=== PATIENT | male | born 1960 | race American Indian/Alaskan Native ===

== ENCOUNTER 2017-04-30 06:05 | Day surgery (SDC) | payer OTHER ==
[~2017-04-30 06:05] MED LIST: ANCEF/STERILE WATER 2 GM/20 ML 2 GM/20 ML SYRINGE IV SCH; DECADRON IV ONE; NACL 0.9% 1000 ML 1,000 ML IV SCH; PEPCID PO NR; VERSED IV NR
[2017-04-30] MEDS ORDERED: NACL BACTERIOSTATIC INFILTRATI ONE (06:28)
[2017-04-30] MEDS ORDERED: SUBLIMAZE ONE (07:00)
[2017-04-30] MEDS ORDERED: DIPRIVAN 10 MG/ML IV ONE (07:00)
[2017-04-30] MEDS ORDERED: ZOFRAN ONE (07:00)
--- NOTE | 2017-04-30 07:02 | Anesthesia Consultation ---
Anesthesia Consult and Med Hx Date of service: 04/30/17 - Airway Anesthetic Teeth Evaluation: Chipped (#8) ROM Head & Neck: Adequate Mental/Hyoid Distance: Adequate Mallampati Class: Class III Intubation Access Assessment: Probably Good - Pulmonary Exam CTA: Yes - Cardiac Exam Cardiac Exam: RRR - Pre-Operative Health Status ASA Pre-Surgery Classification: ASA2 Proposed Anesthetic Plan: General (LMA) - Pre-Anesthesia Comment Pre-Anesthesia Comments: 57y M with h/o HTN (no longer on meds) who presents for bunionectomy. No prev anesthetic complications. - Pulmonary Hx Smoking: No Hx Asthma: No Hx Respiratory Symptoms: No SOB: No COPD: No Home Oxygen Therapy: No Hx Pneumonia: No Hx Sleep Apnea: No (LINDSAY PRE SCREEN HIGH RISK.) - Cardiovascular System Hx Hypertension: Yes (OFF MEDS X 1 YR) Hx Coronary Artery Disease: No (walks the golf course) Hx Heart Attack/AMI: No Hx Angina: No Hx Percutaneous Transluminal Coronary Angioplasty (PTCA): No Hx Cardia Arrhythmia: No Hx Pacemaker: No Hx Internal Defibrillator: No Hx Valvular Heart Disease: No Hx Heart Murmur: No Hx Peripheral Vascular Disease: No - Central Nervous System Hx Neuromuscular Disorder: No Hx Seizures: No CVA: No Hx Back Pain: No Hx Psychiatric Problems: No - Gastrointestinal Hx Ulcer: No Hx Gastroesophageal Reflux Disease: No - Endocrine Hx Renal Disease: No Hx End Stage Renal Disease: No Hx Cirrhosis: No Hx Liver Disease: No Hx Insulin Dependent Diabetes: No Hx Non-Insulin Dependent Diabetes: No Hx Thyroid Disease: No Hx Hypothyroidism: No Hx Hyperthyroidism: No - Other Systems Hx Cancer: No
[2017-04-30] MEDS ORDERED: XYLOCAINE MPF 2% ONE (07:04)
--- NOTE | 2017-04-30 07:09 | Anesthesia Day of Surgery ---
Anesthesia Day of Surgery - Day of Surgery Patient Examined: Yes Patient H&P Reviewed: Yes Patient is NPO: Yes Beta Blockers: Yes Cardiac Clearance: Yes Pulmonary Clearance: Yes Hadley's Test: N/A
[2017-04-30] MEDS ORDERED: MARCAINE 0.25% INFILTRATI ONE ×3 (07:18→07:41)
[2017-04-30] MEDS ORDERED: XYLOCAINE 1% 20 mL ONE (07:18)
[2017-04-30] MEDS ORDERED: ANTIBIOTIC OINT TP ONE (07:19)
[2017-04-30] MEDS ORDERED: DECADRON ONE (07:19)
[2017-04-30] MEDS ORDERED: XYLOCAINE 1% 20 mL INFILTRATI ONE ×2 (07:41)
[2017-04-30] MEDS ORDERED: DILAUDID IV PRN (07:49)
[2017-04-30] MEDS ORDERED: PERCOCET 5/325 PO PRN (07:49)
[2017-04-30] MEDS ORDERED: NACL 0.9% IR ONE (08:04)
[2017-04-30] MEDS ORDERED: DECADRON IV ONE (08:19)
--- NOTE | 2017-04-30 08:53 | XRay Report ---
LEFT FOOT, 2 views: History: Bunionectomy. There is soft tissue gas and swelling surrounding the first metatarsophalangeal joint. Bunionectomy changes along the medial surface of the distal first metatarsal are suspected. No evidence for fracture, dislocation or bony destruction. No bony erosions. IMPRESSION: Surgical changes and soft tissue gas in the distal foot consistent with bunionectomy. No acute process or bony destruction is identified.
[2017-04-30 09:33] VITALS: BP 177/93
--- NOTE | 2017-04-30 14:25 | Post Anesthesia Evaluation ---
- Post Anesthesia Evaluation Patient Participated: Yes Airway Patent: Yes Stable Respiratory Function: Yes Nausea/Vomiting: No Temp > 96.8F: Yes Pain Manageable: Yes Adequeate Hydration: Yes Anesthesia Complications: No
--- NOTE | 2017-05-01 05:44 | Operative Report ---
PREOPERATIVE DIAGNOSIS: Painful bunion, left foot. POSTOPERATIVE DIAGNOSIS: Painful bunion, left foot. SURGICAL PROCEDURE: Bunionectomy, left foot. ANESTHESIA: Surgical procedure performed under general anesthesia. Pneumatic ankle tourniquet, left ankle. ESTIMATED BLOOD LOSS: Less than 10 mL. DESCRIPTION OF PROCEDURE: The patient was brought into the operating room and placed on the operating table in supine position. Following intravenous sedation, the patient was given 2 grams and at this time 12 mL of a 1:1 mix 0.25% Marcaine plain and 1% lidocaine plain was infiltrated into the left first ray via Olivas block after cleansing with alcohol. At this time, a well-padded pneumatic ankle tourniquet was placed 2-3 cm proximal to both the medial and lateral malleoli. At this time, the foot was then scrubbed, prepped and draped in the usual aseptic manner and the procedure was thus begun. Initially, a skin scribe was used to corona out the incision sites at the plantar medial aspect of the first ray. This incision ____was going to be made at the first metatarsophalangeal joint approximately 6 cm in length. The initial incision was made with a 10 blade after exsanguinating the foot to 250 mmHg and tourniquet was sent thereafter. At this time, attention was redirected to the affected area, which all vessels was cauterized as needed and necessary, the deep dissection down to the capsular structures. At this time, there was noted to be a tall capsule which appeared contracted and was thus dissected with a #15 blade and there was noted to be a prominent bone dorsally, medially and proximally and medially at the proximal phalanx as well as the first metatarsal head. At this time, with the use of a sagittal bone saw, a 3 mm wedge of bone was removed medially from the first metatarsal head along with a 2 mm wedge dorsally, followed by a 2 mm wedge from the proximal medial aspect of the proximal phalanx. At this time, the foot was held in a more low position. The nail was needed additional reduction to be performed. At this time, via a medial approach and lateral release was thus performed at the first interspace transecting the abductor apparatuses and tendon structures. At this time, the foot was held in a more reduced and loaded position and it was noted to be adequate reduction of deformity at this time. All rough edges were contoured with a rotating football bur and flushed copiously with normal sterile saline. That to be noted that a wedge ____-shaped capsulorrhaphy was thus performed with the base directed plantar medial and the base directed dorsally. At this time, with the use of a 2 mm ____ Vicryl was used to reapproximate the medial capsule followed by a subcutaneous closure with 4-0 Vicryl, that to be noted prior to closure there was aggressive flush performed with normal sterile saline. At this time, the toe was held in a more of a corrected position and subcuticular closure was performed with 4-0 Prolene. That to be noted, 1 mL of dexamethasone phosphate was infiltrated into the affected area and it was dressed with Steri-Strips, bacitracin, Adaptic and Gene and 4 x 4s. The pneumatic ankle tourniquet was deflated. There was noted to be a prompt hyperemic response to all digits of the affected foot. The patient experienced a traumatic extubation and will be transferred to recovery and discharged home with both written and oral postoperative instructions and x-rays to be taken. JOB# [id number] JASMIN/HUBERT
== END 2017-04-30 10:22 | disposition home or self-care (01) ==
LOC: OR 06:05
PROVIDERS: ATTEND Podiatrist Foot & Ankle Surgery
DX: M21.612 Bunion of left foot (principal); I10 Essential (primary) hypertension
CPT/HCPCS: 28292; 73620; 88304; 88311; J0690; J1100; J2250; J2405; J2704; J3010; J7030